=== PATIENT | female | born 1985 ===

== ENCOUNTER 2020-08-09 09:30 | Outpatient (CLI) | payer OTHER ==
[~2020-08-09 09:30] MED LIST: ZITHROMAX200 MG PO
== END 2020-08-09 09:46 | disposition home or self-care (01) ==
LOC: RX STUDY 09:30
PROVIDERS: ATTEND Obstetrics & Gynecology Gynecology
DX: N84.0 Polyp of corpus uteri (principal); N93.8 Other specified abnormal uterine and vaginal bleeding

== ENCOUNTER 2023-06-26 08:35 | Outpatient (CLI) | payer OTHER | END 2023-06-26 09:00 | disposition home or self-care (01) | LOC: SONOGRAMA 08:35 | PROVIDERS: ATTEND Obstetrics & Gynecology Gynecology | DX: R10.2 Pelvic and perineal pain (principal) ==